=== PATIENT | female | born 1965 | race Caucasian/White ===

== ENCOUNTER 2016-11-05 06:29 | Emergency (ER) | payer MEDICARE, OTHER ==
[2016-11-05] MEDS ORDERED: 0.9 % SODIUM CHLORIDE 1,000 ML IV SCH (07:30)
[2016-11-05] MEDS ORDERED: 0.9 % SODIUM CHLORIDE 1,000 ML IV ONE (07:36)
--- NOTE | 2016-11-05 07:41 | ED Physician Documentation ---
Seizure - HISTORIAN Historian: patient, friend - HPI Stated Complaint: experienced a seizure that lasted approximately 25 min/also c/ o of Hemorroi Chief Complaint: Seizure Additional Information: Known seizure disorder, not on meds, more tired this week, frequent dizzy spells when looking up, awoken from sleep with tonic clonic seizure activity noted by sig. other. Pt. does not remember it. Sig. other states her eyes were twitcing, she was posturing and not verbally responding. This went on an unknown amount of time but possibly up to 25 minutes. Timing/Onset/Duration: single episode Last known Well Date: 11/05/16 Last Known Well Time: 00:00 Last known Well Code/Unknown Code: Unknown Witnessed By: friend Preceding Symptoms: other (fatigue) Activity Prior to Seizure: sleep Character of Seizure(s): unresponsiveness (verbally), "shaking all over". denies: incontinence of urine, incontinence of stool Postictal Symptoms: confusion, headache Location of Injury: none Further Comments: no - ROS NEURO/PSYCH: headache (off and on, today's post seizure), dizziness (positional with neck) EYES/ENT: none CVS/RESP: none GI/: other (constipation, hemorrhoids with recent bleeding). denies: adominal pain, nausea, vomiting, diarrhea, black stools - PAST HX Previous seizure/seizure disorder: long-standing, since childhood Etiology: idiopathic. denies: head injury Other History: hypertension, other (rheumatoid arthritis) Surgeries/Procedures: other (hysterectomy, cholecystectomy, back surgery x 2, breast bx/lumpectomy) Immunizations: referred to PCP Allergies/Adverse Reactions: Allergies Allergy/AdvReac Type Severity Reaction Status Date / Time Sulfa (Sulfonamide AdvReac Intermediate Nausea/Vomi Verified 11/05/16 06:55 Antibiotics) ting Home Medications: Ambulatory Orders Medication Instructions Recorded Adalimumab [Humira] 01/31/16 Atenolol [Tenormin] 50 mg pe PO BID 01/31/16 Leflunomide [Arava] 20 mg PO TID 01/31/16 predniSONE [Deltasone] 10 mg PO D 01/31/16 Levetiracetam [Keppra] 500 mg PO BID #30 tablet 11/05/16 - SOCIAL HX Smoking History: cigarettes Alcohol Use: none Drug Use: none - FAMILY HX Family History: seizure (cousin) - VITAL SIGNS Vital Signs: Vital Signs Temp Pulse Resp BP Pulse Ox 98.1 F 80 16 135/96 97 11/05/16 11:51 11/05/16 11:51 11/05/16 11:51 11/05/16 11:51 11/05/16 11:51 - REVIEWED ASSESSMENTS Nursing Assessment Reviewed: Yes Vitals Reviewed: Yes Progress - Results/Orders Results/Orders: cbc, cmp, ua, uds, ct head, c-spine and kub ordered - Progress Progress: pt. stable entire time in er, no seizure activity Critical Care Note - Critical Care Note Total Time (mins): 0 ED Results Lab/Radiology - Lab Results Lab Results: Lab Results 11/05/16 11/05/16 11/05/16 09:20 08:25 08:25 Sodium 139 mmol/L mmol/L (136-145) Potassium 4.4 mmol/L mmol/L (3.5-5.0) Chloride 109 mmol/L mmol/L (98-110) Carbon Dioxide 22 mmol/L mmol/L (20-32) BUN 15 mg/dL mg/dL (10-26) Creatinine 1.2 mg/dL mg/dL (0.4-1.5) Estimated Creat Clear 84 Est GFR ( Amer) > 60 (60 - ) Est GFR (Non-Af Amer) > 60 (60 - ) Glucose 68 mg/dL L mg/dL (70-99) Calcium 9.2 mg/dL mg/dL (8.5-10.5) Total Bilirubin 0.3 mg/dL mg/dL (0.2-1.2) AST 21 U/L U/L (0-41) ALT 15 U/L U/L (0-45) Alkaline Phosphatase 123 U/L H U/L (46-116) Total Protein 7.1 g/dL g/dL (6.0-8.5) Albumin 4.0 g/dL g/dL (3.0-5.5) Urine Color Yellow (YELLOW) Urine Appearance Clear (CLEAR) Urine pH 6.5 (5.0 - 8.0) Ur Specific [place] <=1.005 L (1.010-1.030) Urine Protein Negative mg/dL mg/dL (NEGATIVE) Urine Ketones Negative mg/dL mg/dL (NEGATIVE) Urine Occult Blood 2+ H (NEGATIVE) Urine Nitrite Negative (NEGATIVE) Urine Bilirubin Negative (NEGATIVE) Urine Urobilinogen 0.2 Eu Eu (0.2-1.0) Ur Leukocyte Esterase Negative (NEGATIVE) Urine RBC 2-5 H (0-2 HPF) Urine WBC 0-2 (0-5 HPF) Ur Squamous Epith Cells Few (NEG-FEW) Urine Bacteria Few H (NEGATIVE) Urine Glucose Negative mg/dL mg/dL (NEGATIVE) Opiates Screen Negative (2000 ng/mL) Oxycodone Screen Negative ng/mL ng/mL (<100) Methadone Screen Negative ng/mL ng/mL (<300) POC Urine Barbiturates Negative ng/mL ng/mL (<300) Amphetamines Screen Negative ng/mL ng/mL (<1000) POC Ur Methamphetamine Negative ng/mL ng/mL (<1000) MDMA Negative ng/mL ng/mL (<500) Benzodiazepines Screen Negative ng/mL ng/mL (<300) Cocaine Screen Negative ng/mL ng/mL (<150) Marijuana (THC) Screen Negative ng/mL ng/mL (<50) - Radiology Radiology Impressions: kub neg, ct head and neck neg - Orders Orders: ED Orders Category Date Time Status Place Saline Lock/IV Now Care 11/05/16 07:30 Active ABDOMEN 1 VIEW [RAD] Stat Exams 11/05/[address] BRAIN W/O CONTRAST Stat Exams 11/05/[address] C-SPINE W/O CONTRAST Stat Exams 11/05/16 Ordered CMP Routine Lab 11/05/16 09:20 Completed DRUG SCREEN URINE MEDICAL ONLY Routine Lab 11/05/16 08:25 Completed URINALYSIS Routine Lab 11/05/16 08:25 Completed 0.9 % Sodium Chloride [Normal Saline] 1,000 ml Med 11/05/16 07:30 Discontinued IV .Q1H 0.9 % Sodium Chloride [Normal Saline] 1,000 ml Med 11/05/16 07:36 Discontinued IV .STK-MED Seizure Physical Exam - Physical Exam General Appearance: no acute distress, post ictal (increased time to comprehend and answer questions) Altered Mental Status Higher Functions: alert, oriented x3, no evidence of acute CVA, slow to respond (minimally) EENT: nml eye inspection, PERRL, other (looking up makes pt. dizzy) Neck/Back: normal inspection, other (upward positioning makes pt. dizzy) Respiratory: no resp. distress, breath sounds nml, no evidence of rib injury CVS: reg rate & rhythm, heart sounds normal, equal pulses, no murmur, no gallop , PMI nml, no JVD, no friction rub Abdomen: non-tender, no organomegaly, nml bowel sounds, no distention Skin: warm/dry, normal color Extremities: normal range of motion, non-tender, normal inspection, no pedal edema, no calf tenderness Observed Seizure Activity in ED: other (no seizure activity in er) - Nexus Criteria Neg Nexus Criteria: Nexus criteria neg Discharge Clincal Impression: Seizure disorder Prescriptions: Levetiracetam [Keppra] 500 mg PO BID #30 tablet Referrals: Betsy Dutton MD [Primary Care Provider] - 2 Days Home Medications: Ambulatory Orders Adalimumab [Humira] 01/31/16 Atenolol [Tenormin] 50 mg pe PO BID 01/31/16 Leflunomide [Arava] 20 mg PO TID 01/31/16 predniSONE [Deltasone] 10 mg PO D 01/31/16 Levetiracetam [Keppra] 500 mg PO BID #30 tablet 11/05/16 Comments: discharged wi Condition: Stable Disposition: 01 HOME, SELF-CARE Decision to Admit: NO Decision Time: 11:45
[2016-11-05 08:31] LABS: APPEARANCE,URINE Clear (CLEAR); COLOR,URINE Yellow (YELLOW); OCCULT BLOOD,URINE 2+ (NEGATIVE); PH URINE 6.5 (5.0 - 8.0); UROBILINOGEN URINE 0.2 Eu (0.2-1.0)
[2016-11-05 08:41] LABS: BARBITURATES NEGATIVE ng/mL (<300); METHAMPHETAMINE NEGATIVE ng/mL (<1000)
[2016-11-05 08:42] LABS: AMPHETAMINE NEGATIVE ng/mL (<1000); CANNABINOIDS NEGATIVE ng/mL (<50); COCAINE NEGATIVE ng/mL (<150); METHYLENEDIOXYMETHAMPHETAMINE NEGATIVE ng/mL (<500)
[2016-11-05 10:04] LABS: eGFR (African) > 60; eGFR (Non-African) > 60
[2016-11-05 11:52] VITALS: BP 135/96
--- NOTE | 2016-11-05 22:28 | Diagnostic Imaging Report ---
~ [facility] [address] [facility].[address] [address] ~ ~ ~ ~ Report Submission Date: Nov 05, 2016 9:39:26 AM CDT Patient ~ Study Name: HARLEY NEUMANN ~ Date: Nov 05, 2016 8:17:49 AM CDT ~ Modality Type: CT\SR Gender: F ~ Description: CT C-SPINE W/O CONTRAS : 65 ~ Institution: [facility] Physician TERESE MAGALLON ~ ~ ~ Computed tomography of the cervical spine without contrast HISTORY: ~ Dizzy and seizure FINDINGS: ~ Transverse cervical spine sections are obtained without contrast from which multiplanar reformatted images are generated. ~The cervical spine is intact without fracture, significant disc space narrowing, subluxation, or paraspinal swelling. ~Mild bilateral C3-4 facet arthropathy is observed. IMPRESSION: ~ C3-4 facet arthropathy. ~ Electronically signed on Nov 05, 2016 9:39:26 AM CDT by: Davey FUENTES
--- NOTE | 2016-11-05 22:29 | Diagnostic Imaging Report ---
~ [facility] [address] [facility] [address] [place], [place]. [address] ~ ~ ~ ~ Report Submission Date: Nov 05, 2016 9:41:50 AM CDT Patient ~ Study Name: HARLEY NEUMANN ~ Date: Nov 05, 2016 8:30:28 AM CDT ~ Modality Type: CR Gender: F ~ Description: ABDOMEN : 65 ~ Institution: [facility] Physician TERESE MAGALLON ~ ~ ~ Supine abdomen HISTORY: ~ Constipation FINDINGS: ~ Moderate levoconvex rotary lumbar scoliosis and multilevel lumbar disc space narrowing is observed. ~Moderate right colonic stool is present. ~The bowel gas pattern is otherwise normal without significant left-sided colonic or rectal stool. ~No abnormal calcifications are identified. ~A cholecystectomy clip is present. IMPRESSION: ~ Moderate right colonic stool, cholecystectomy clips, and lumbar spondylosis with rotary scoliosis. ~ Electronically signed on Nov 05, 2016 9:41:50 AM CDT by: Davey FUENTES
--- NOTE | 2016-11-05 22:30 | Diagnostic Imaging Report ---
~ [facility] [address] [facility] [address] [place], [place]. [address] ~ ~ ~ ~ Report Submission Date: Nov 05, 2016 9:41:50 AM CDT Patient ~ Study Name: HARLEY NEUMANN ~ Date: Nov 05, 2016 8:30:28 AM CDT ~ Modality Type: CR Gender: F ~ Description: ABDOMEN : 65 ~ Institution: [facility] Physician TERESE MAGALLON ~ ~ ~ Supine abdomen HISTORY: ~ Constipation FINDINGS: ~ Moderate levoconvex rotary lumbar scoliosis and multilevel lumbar disc space narrowing is observed. ~Moderate right colonic stool is present. ~The bowel gas pattern is otherwise normal without significant left-sided colonic or rectal stool. ~No abnormal calcifications are identified. ~A cholecystectomy clip is present. IMPRESSION: ~ Moderate right colonic stool, cholecystectomy clips, and lumbar spondylosis with rotary scoliosis. ~ Electronically signed on Nov 05, 2016 9:41:50 AM CDT by: Davey FUENTES
== END 2016-11-05 11:51 | disposition home or self-care (01) ==
LOC: ED 06:29
DX: G40.909 Epilepsy, unspecified, not intractable, without status epilepticus (principal)
CPT/HCPCS: 36415; 70450; 72125; 74000; 80053; 81002; G0481; J7030; 80377; 96360; 99283; S1016